=== PATIENT | male | born 1970 | race Caucasian/White ===

== ENCOUNTER 2019-11-15 14:46 | Inpatient (IN) | payer BC, SELFPAY ==
[2019-11-15 14:50] VITALS: BP 122/74; PULSE 110; RESP 16; TEMP 37.9; O2SAT 97
--- NOTE | 2019-11-15 14:56 | ED.SKABFB ---
HPI - Skin/Abscess/Foreign Bdy General Chief complaint: Skin/Abscess/Foreign Body Stated complaint: CELLULITIS Time Seen by Provider: 11/15/19 14:55 Source: patient Mode of arrival: EMS Limitations: no limitations History of Present Illness HPI narrative: The pt is a 49 y/o male who presents to the ED, via EMS, c/o possible RLE cellulitis onset 6.5 hours ago. The pt states that the pain began while he was at work. Pt states that he has erythema to the right thigh and right lower leg, as well as 10/10 pain to the same area that worsens when he moves his leg/puts weight on the RLE, and improves when he is sitting down. Pt states that the pain is sharp when he stands up/puts weight on it, but more of a irritation when he sits down. He also notes that he has had similar episodes of this, though not as severe as right now. He states that the last time he had this was 03/2019, and states that he was not admitted at that time. Pt reports fever and chills, but denies CP, SOB, N/V/D, ABD pain, dysuria, and hematuria. MD complaint: other (Possible cellulitis) Onset (ago): hour(s) (6.5) Location: RLE Severity scale (1-10): 10 Quality: sharp (When he stands up/puts weight on RLE) and other (Irritation (when he is sitting down)) Context: other (PMHx of cellulitis) Associated symptoms: fever, chills and other (Erythema to the right lower leg and right thigh, pain to the right lower leg and right thigh) Related Data Home Medications Medication Instructions Recorded Confirmed No Home Medications 11/15/19 11/15/19 Allergies Allergy/AdvReac Type Severity Reaction Status Date / Time No Known Allergies Allergy Unknown Verified 11/15/19 15:13 Review of Systems Review of Systems: Narrative: Review of Systems Constitutional: Positive for fever and chills. Respiratory: Negative for shortness of breath. Cardiovascular: Negative for chest pain. Gastrointestinal: Negative for nausea, vomiting, abdominal pain and diarrhea. Genitourinary: Negative for dysuria and hematuria. Musculoskeletal: Positive for 10/10 pain to the right lower leg and right thigh that worsens and becomes sharp when he moves his leg/puts weight on it, but improves when he is sitting down and becomes more of an irritation. Skin: Positive for erythema to the right lower leg and right thigh. All systems reviewed & are unremarkable except as noted in HPI and below PMFSH Past Medical History Medical History (Updated 11/15/19 @ 19:15 by Elissa Black MD) Cellulitis Cyst Wrist Leg fracture, right Surgical History Surgical History (Updated 11/15/19 @ 15:05 by Deny Guevara) H/O wrist surgery Cyst removal History of open reduction and internal fixation (ORIF) procedure Right leg Family History Family History (Updated 11/15/19 @ 18:15 by Amy Valladares, MIRA) Other High cholesterol Skin cancer Type 2 diabetes mellitus Social History Social History (Updated 11/15/19 @ 15:09 by Deny Guevara) Smoking packs per day: 1 Smoking cigarettes per day: 20.0 Years smoked: 10 Smoking pack-years: 10.00 Smoking status: Former smoker Tobacco type: cigarettes Alcohol intake: never Substance use: never Gender identity (if verbalized by the patient): Male Spiritual care concerns: No Agree to blood products: Yes Comments PCP: Dr. Edmondson Exam Narrative: Exam Narrative: Constitutional: Appears well-developed. No distress. HENT: Head: Normocephalic. Nose: Nose normal. Mouth/Throat: Oropharynx is clear and moist. Eyes: Conjunctiva are normal. Neck: Normal range of motion. Neck supple. Cardiovascular: Tachycardia and regular rhythm. Pulmonary/Chest: Effort normal and breath sounds normal. Abdominal: Soft. There is no tenderness. Musculoskeletal: Normal range of motion. No edema. Neurological: Alert and oriented to person, place, and time. Skin: Skin is warm. No pallor. Right thigh and right lower leg erythema. Psyc
[2019-11-15] MEDS: KETOROLAC 30 MG/ML VIAL (*BKC) IV PUSH (15:25)
[2019-11-15 15:27] LABS: Hematocrit 50.6 % (42.0-52.0); Hemoglobin 16.4 g/dL (14.0-18.0); Mean Corpuscular HGB Conc 32.4 g/dl (32-36); Mean Corpuscular Hemoglobin 26.2 pg (26-34); Mean Corpuscular Volume 80.7 fl (80-100); Mean Platelet Volume 10.7 fl (7.4-10.4); Platelet Count Result 199 k/mm3 (150-375); Red Blood Count 6.27 M/mm3 (4.6-6.20); Red Cell Distribution Width 15.4 % (11.5-14.5); White Blood Count 12.3 K/mm3 (4.5-10.0)
[2019-11-15 15:38] LABS: Lactic Acid Reflex 1.5 mmol/L (0.7-2.1)
[2019-11-15 15:40] LABS: Blood Urea Nitrogen 17 mg/dL (9-20); Calcium 8.9 mg/dL (8.4-10.2); Carbon Dioxide 26 mmol/L (22-30); Chloride 98 mmol/L (98-107); Estimated CRCL calculation 95 ml/min; Estimated Glomerular Filt Rate > 60; Glucose 111 mg/dL (75-110); Sodium 134 mmol/L (137-145)
[2019-11-15 15:49] LABS: Band Neutrophils Percent 20 % (0-6); Lymphocytes Absolute Manual 0.49 K/mm3 (1.1-4.5); Monocytes Absolute Manual 0.49 K/mm3 (0.1-0.90); Monocytes Percent Manual 4 % (3-9); Neutrophils Absolute Manual 11.31 K/mm3 (1.3-6.7); Neutrophils Percent Manual 72 % (46-73); Total Cells Counted 100
[2019-11-15 15:50] LABS: Anisocytosis 2+ (NORMAL); Platelet Estimate Adequate (Adequate)
[2019-11-15] MEDS: SODIUM CHLORIDE 0.9% IV 1,000 ML 999 ML IV CONT (16:30)
[2019-11-15 17:25] VITALS: BP 131/73; PULSE 100; RESP 16; O2SAT 98
--- NOTE | 2019-11-15 18:07 | ADMGEN ---
This patient, Tay Zhao, was admitted to Medical Room 249-01. Patient/family oriented to hospital policies and general routines including ID bracelet, bed and alarms, visiting hours, pain management, procedures, bathroom and other care routines, personal items, smoking policy, room service/diet, and visiting hours. Valuables list has been completed. Information on how to activate the Rapid Response Team has been discussed. Patient/Family are encouraged to report perceived risks to care and to ask questions if they do not understand what they are told or what they should do.
[2019-11-15 18:15] VITALS: BP 107/59; PULSE 108; RESP 18; TEMP 36.8; O2SAT 95; BMI 37.9
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
[2019-11-15] MEDS: ACETAMINOPHEN 325 MG TABLET 650 MG PO (20:03)
[2019-11-15 21:58] VITALS: BP 104/58; PULSE 101; RESP 18; TEMP 37.3; O2SAT 95
[2019-11-16] VITALS (9 sets, daily range): BP systolic 110–120; BP diastolic 51–66; PULSE 84–103; RESP 16–20; TEMP 36.4–38.3; O2SAT 95–99
[2019-11-16] MEDS: ACETAMINOPHEN 325 MG TABLET 650 MG PO ×4 (05:18→22:17)
[2019-11-16 06:15] LABS: Blood Urea Nitrogen 18 mg/dL (9-20); Calcium 8.1 mg/dL (8.4-10.2); Carbon Dioxide 31 mmol/L (22-30); Chloride 97 mmol/L (98-107); Estimated CRCL calculation 96 ml/min; Estimated Glomerular Filt Rate > 60; Glucose 121 mg/dL (75-110); Potassium 3.8 mmol/L (3.4-5.0); Sodium 133 mmol/L (137-145)
[2019-11-16 06:27] LABS: Basophils Absolute Auto 0.1 K/mm3 (0.0-0.1); Basophils Percent Auto 0.4 % (0.2-1.2); Eosinophils Percent Auto 0.1 % (0-4.4); Hematocrit 47.5 % (42.0-52.0); Hemoglobin 15.3 g/dL (14.0-18.0); Immature Granulocyte Absolute 0.09 K/mm3 (0.00-0.031); Immature Granulocyte Percent A 0.6 % (0-0.5); Lymphocytes Absolute Auto 0.66 K/mm3 (0.9-3.2); Lymphocytes Percent Auto 4.2 % (18.3-44.2); Mean Corpuscular HGB Conc 32.2 g/dl (32-36); Mean Corpuscular Hemoglobin 26.3 pg (26-34); Mean Corpuscular Volume 81.8 fl (80-100); Mean Platelet Volume 10.9 fl (7.4-10.4); Monocytes Absolute Auto 0.8 K/mm3 (0.1-0.6); Monocytes Percent Auto 5.1 % (2.6-8.5); Neutrophils Percent Auto 89.6 % (45.5-73.1); Platelet Count Result 189 k/mm3 (150-375); Red Blood Count 5.81 M/mm3 (4.6-6.20); Red Cell Distribution Width 14.9 % (11.5-14.5); White Blood Count 15.6 K/mm3 (4.5-10.0)
--- NOTE | 2019-11-16 10:27 | PM.IMPN ---
Progress Note: A&P Assessment and Plan (1) Sepsis: Qualifiers: Sepsis acute organ dysfunction status: unspecified Sepsis type: sepsis due to unspecified organism Qualified Code(s): A41.9 - Sepsis, unspecified organism Code(s): A41.9 - Sepsis, unspecified organism Status: Acute Assessment and Plan: -----septic on arrival due to cellulitis of the right leg. Evident by leukocytosis and fever. Fever has improved and the leukocytosis has worsened. Lactic acid is normal. Blood cultures are pending at this time. Patient appears stable. (2) Cellulitis of right leg: Code(s): L03.115 - Cellulitis of right lower limb Status: Acute Assessment and Plan: -----erythema has not improved today but has been less than 24 hours on IV antibiotics. He had a fever last night but has improved today. Continue vancomycin and Ancef at this time. If patient does not improve in the next 12:[address] scan of the area. He does have hardware in this leg and has had cellulitis before about 8 months ago. (3) Obstructive sleep apnea on CPAP: Code(s): G47.33 - Obstructive sleep apnea (adult) (pediatric); Z99.89 - Dependence on other enabling machines and devices Status: Acute Assessment and Plan: -----continue CPAP Time Spent With Patient Time with patient: 25 - 35 minutes Subjective Date/time seen: 11/16/19 10:27 Interval history: Pt is a 49-year-old male here for cellulitis. Patient states that he has the cellulitis is no better or worse today. He has some pain in the area but the pain medication does help. He is eating and drinking okay and not having any nausea or vomiting. He had a fever last night but no chills. He denies chest pain, shortness of breath, abdominal pain, diarrhea and constipation. Review of Systems Review of Systems: All systems reviewed & are unremarkable except as noted in HPI and below Exam Narrative: Exam Narrative: General: Well developed well nourished patient resting comfortably in bed in NAD HEENT: normocephalic Neck: supple Neuro: Alert and oriented x4 CV:RRR Resp:CTA Abd: Soft, non distended. No pain to palpation. Positive bowel sounds Extremities: Extensive cellulitis to the right leg within the demarcated lines drawn by the ER. No abscess palpated or discharge noted. Previous surgical scars noted. Sensation and pulses intact. Objective Data Vital Signs Vital Signs: Vital Signs - 24 hr 11/15/19 14:50 11/15/19 17:25 11/15/19 18:15 Temperature 100.2 F H 98.3 F Pulse Rate 110 H 100 108 H Respiratory Rate 16 16 18 Blood Pressure 122/74 131/73 107/59 L Pulse Oximetry 97 98 95 11/15/19 21:58 11/16/19 05:18 11/16/19 06:00 Temperature 99.2 F 100.9 F H 100.9 F H Pulse Rate 101 H 91 Respiratory Rate 18 18 Blood Pressure 104/58 L 120/55 L Pulse Oximetry 95 99 11/16/19 06:50 11/16/19 07:01 Temperature 99.3 F 99.3 F Pulse Rate Respiratory Rate Blood Pressure Pulse Oximetry Intake/Output Intake/Output: Intake & Output 11/13/19 11/14/19 11/15/19 11/16/19 23:59 23:59 23:59 23:59 Intake Total 1340 1190 Output Total 850 Balance 1340 340 Meds/Results Medications: Active Medications Generic Name Dose Route Start Last Admin Trade Name Freq PRN Reason Stop Dose Admin Acetaminophen 650 mg 11/15/19 16:56 11/16/19 10:08 Tylenol Tablet PO 650 mg Q4H PRN Administration Mild Pain (1-3) or Fever Hydrocodone Bitart/Acetaminophen 1 tab 11/15/19 21:41 11/16/19 05:19 [place] 5-325 Mg PO 1 tab Q6H PRN Administration Pain Rated 4-10 Cefazolin Sodium 1 gm in 50 mls @ 100 mls/hr 11/15/19 22:00 11/16/19 05:49 Ancef 1 Gm/D5w 50 Ml Pm IVPB Infused Q8H [facility] Infusion Vancomycin HCl 1,750 mg in 500 mls @ 250 mls/hr 11/16/19 11:00 11/16/19 10:08 Vancomycin 1,750 Mg/D5w 500 Ml IVPB 200 mls/hr Q12H [facility] Administration Labs Labs:
[2019-11-16 22:45] LABS: Vancomycin Trough 8.9 ug/mL (10.0-20.0)
[2019-11-17 00:51] VITALS: PULSE 88; RESP 16; O2SAT 96
[2019-11-17 05:32] LABS: Hematocrit 48.1 % (42.0-52.0); Hemoglobin 15.5 g/dL (14.0-18.0); Mean Corpuscular HGB Conc 32.2 g/dl (32-36); Mean Corpuscular Volume 80.6 fl (80-100); Mean Platelet Volume 10.3 fl (7.4-10.4); Platelet Count Result 193 k/mm3 (150-375); Red Blood Count 5.97 M/mm3 (4.6-6.20); Red Cell Distribution Width 15.1 % (11.5-14.5); White Blood Count 13.2 K/mm3 (4.5-10.0)
[2019-11-17 05:56] LABS: Alanine Aminotransferase 34 U/L (4-50); Albumin Level 3.8 g/dL (3.5-5.1); Alkaline Phosphatase 65 U/L (38-126); Aspartate Amino Transferase 31 U/L (17-59); Bilirubin,Total 1.2 mg/dL (0.2-1.3); Blood Urea Nitrogen 10 mg/dL (9-20); Calcium 8.2 mg/dL (8.4-10.2); Carbon Dioxide 24 mmol/L (22-30); Chloride 99 mmol/L (98-107); Estimated CRCL calculation 119 ml/min; Estimated Glomerular Filt Rate > 60; Glucose 106 mg/dL (75-110); Potassium 3.9 mmol/L (3.4-5.0); Sodium 131 mmol/L (137-145)
[2019-11-17 06:12] VITALS: BP 122/69; PULSE 92; RESP 18; TEMP 36.8; O2SAT 96
[2019-11-17] MEDS: ACETAMINOPHEN 325 MG TABLET 650 MG PO (06:30)
[2019-11-17 06:32] LABS: Hemoglobin A1C 5.5 % (<5.7)
[2019-11-17] MEDS: polyethylene glycoL 3350 17 GM POWD.PACK PO (09:03)
[2019-11-17 11:17] LABS: Sodium Urine Random 6 meq/L
[2019-11-17 14:00] VITALS: BP 109/61; PULSE 78; RESP 16; TEMP 36.9; O2SAT 97
--- NOTE | 2019-11-17 15:52 | PM.IMPN ---
Progress Note: A&P Assessment and Plan (1) Sepsis: Qualifiers: Sepsis acute organ dysfunction status: unspecified Sepsis type: sepsis due to unspecified organism Qualified Code(s): A41.9 - Sepsis, unspecified organism Code(s): A41.9 - Sepsis, unspecified organism Status: Acute Assessment and Plan: -----septic on arrival due to cellulitis of the right leg. Evident by leukocytosis and fever. Fever has improved and the leukocytosis has worsened. Lactic acid is normal. Blood cultures NGTD. Patient appears stable. (2) Cellulitis of right leg: Code(s): L03.115 - Cellulitis of right lower limb Status: Acute Assessment and Plan: -----erythema improved somewhat today. Pt has not had a fever and his WBC is better. Continue vancomycin and Ancef at this time. Consider CT scan if pt is not improving, although I do believe he has improved a bit today. He does have hardware in this leg and has had cellulitis before about 8 months ago. (3) Obstructive sleep apnea on CPAP: Code(s): G47.33 - Obstructive sleep apnea (adult) (pediatric); Z99.89 - Dependence on other enabling machines and devices Status: Acute Assessment and Plan: -----continue CPAP (4) Hyponatremia: Code(s): E87.1 - Hypo-osmolality and hyponatremia Status: Acute Assessment and Plan: -----noted on labs today 131. Could be due to pain/acute illness. Will monitor with daily labs. Subjective Date/time seen: 11/17/19 15:52 Interval history: Pt is a 49-year-old male here for cellulitis. Patient states that thinks his cellulitis is better on his lower leg but unchanged on his thigh. He has significant pain when walking but other than that he is doing okay. He has no fevers or chills today which is an improvement. He was constipated earlier but was able to have a bowel movement. He denies cp, sob, nausea, vomiting, or abdominal pain. He is eating and drinking well Exam Narrative: Exam Narrative: General: Well developed well nourished patient resting comfortably in bed in NAD HEENT: normocephalic Neck: supple Neuro: Alert and oriented x4 CV:RRR Resp:CTA Abd: Soft, non distended. No pain to palpation. Positive bowel sounds Extremities: Extensive cellulitis to the right leg within the demarcated lines drawn by the ER. No abscess palpated or discharge noted. Erythema below the knee has improved. Erythema to the thigh is unchanged. Previous surgical scars noted. Sensation and pulses intact. Objective Data Vital Signs Vital Signs: Vital Signs - 24 hr 11/16/19 16:18 11/16/19 17:18 11/16/19 20:45 Temperature 100.5 F H 98.2 F Pulse Rate 84 Respiratory Rate 16 Blood Pressure Pulse Oximetry 96 11/16/19 22:11 11/17/19 00:51 11/17/19 06:12 Temperature 97.6 F 98.3 F Pulse Rate 103 H 88 92 Respiratory Rate 20 16 18 Blood Pressure 110/51 L 122/69 Pulse Oximetry 95 96 96 11/17/19 14:00 Temperature 98.4 F Pulse Rate 78 Respiratory Rate 16 Blood Pressure 109/61 Pulse Oximetry 97 Intake/Output Intake/Output: Intake & Output 11/14/19 11/15/19 11/16/19 11/17/19 23:59 23:59 23:59 23:59 Intake Total 1340 3250 1590 Output Total 2800 1500 Balance 1340 450 90 Meds/Results Medications: Active Medications Generic Name Dose Route Start Last Admin Trade Name Freq PRN Reason Stop Dose Admin Acetaminophen 650 mg 11/15/19 16:56 11/17/19 06:30 Tylenol Tablet PO 650 mg Q4H PRN Administration Mild Pain (1-3) or Fever Hydrocodone Bitart/Acetaminophen 1 tab 11/15/19 21:41 11/17/19 09:04 [place] 5-325 Mg PO 1 tab Q6H PRN Administration Pain Rated 4-10 Cefazolin Sodium 1 gm in 50 mls @ 100 mls/hr 11/15/19 22:00 11/17/19 13:59 Ancef 1 Gm/D5w 50 Ml Pm IVPB 100 mls/hr Q8H [facility] Administration Vancomycin HCl 2,000 mg in 500 mls @ 250 mls/hr 11/17/19 10:00 11/17/19 11:34 Vancomycin 2,000 Mg/D5w
[2019-11-17 22:00] VITALS: BP 102/57; PULSE 88; RESP 16; TEMP 36.7; O2SAT 96
[2019-11-18 05:31] LABS: Hemoglobin 14.9 g/dL (14.0-18.0); Mean Corpuscular HGB Conc 33.1 g/dl (32-36); Mean Corpuscular Hemoglobin 26.7 pg (26-34); Mean Corpuscular Volume 80.5 fl (80-100); Mean Platelet Volume 10.2 fl (7.4-10.4); Platelet Count Result 182 k/mm3 (150-375); Red Blood Count 5.59 M/mm3 (4.6-6.20); Red Cell Distribution Width 14.9 % (11.5-14.5); White Blood Count 9.2 K/mm3 (4.5-10.0)
[2019-11-18 05:36] LABS: Blood Urea Nitrogen 10 mg/dL (9-20); Calcium 8.1 mg/dL (8.4-10.2); Carbon Dioxide 27 mmol/L (22-30); Chloride 102 mmol/L (98-107); Estimated CRCL calculation 134 ml/min; Estimated Glomerular Filt Rate > 60; Glucose 93 mg/dL (75-110); Potassium 3.8 mmol/L (3.4-5.0); Sodium 135 mmol/L (137-145)
[2019-11-18 06:00] VITALS: BP 115/64; PULSE 75; RESP 16; TEMP 36.2; O2SAT 76
[2019-11-18 10:56] VITALS: PULSE 89; O2SAT 96
--- NOTE | 2019-11-18 11:10 | PM.IMPN ---
Progress Note: A&P Assessment and Plan (1) Sepsis: Qualifiers: Sepsis acute organ dysfunction status: unspecified Sepsis type: sepsis due to unspecified organism Qualified Code(s): A41.9 - Sepsis, unspecified organism Code(s): A41.9 - Sepsis, unspecified organism Status: Acute Assessment and Plan: -----septic on arrival due to cellulitis of the right leg. Evident by leukocytosis and fever--which have both improved. Lactic acid is normal. Blood cultures NGTD. Patient appears stable. (2) Cellulitis of right leg: Code(s): L03.115 - Cellulitis of right lower limb Status: Acute Assessment and Plan: -----erythema improved today but I do believe he still requires IV abx. Pt has not had a fever and his WBC is normal. Continue vancomycin and Ancef at this time. He does have hardware in this leg and has had cellulitis before about 8 months ago. (3) Obstructive sleep apnea on CPAP: Code(s): G47.33 - Obstructive sleep apnea (adult) (pediatric); Z99.89 - Dependence on other enabling machines and devices Status: Acute Assessment and Plan: -----continue CPAP (4) Hyponatremia: Code(s): E87.1 - Hypo-osmolality and hyponatremia Status: Acute Assessment and Plan: -----Improved today 134. Could be due to pain/acute illness. Will monitor with daily labs. Subjective Date/time seen: 11/18/19 11:10 Interval history: Pt is a 49-year-old male here for cellulitis. Patient states that thinks he is improving. he still has pain to the thigh but that is also improving. He has no fevers or chills today which is an improvement. He denies cp, sob, nausea, vomiting, or abdominal pain. He is eating and drinking well Exam Narrative: Exam Narrative: General: Well developed well nourished patient resting comfortably in bed in NAD HEENT: normocephalic Neck: supple Neuro: Alert and oriented x4 CV:RRR Resp:CTA Abd: Soft, non distended. No pain to palpation. Positive bowel sounds Extremities: Extensive cellulitis to the right leg within the demarcated lines drawn by the ER. No abscess palpated or discharge noted. Erythema in both areas are less intense and no progression outside the demarcated lines. Not much regression at this time. Previous surgical scars noted. Sensation and pulses intact. Objective Data Vital Signs Vital Signs: Vital Signs - 24 hr 11/17/19 14:00 11/17/19 22:00 11/18/19 06:00 Temperature 98.4 F 98.0 F 97.1 F L Pulse Rate 78 88 75 Respiratory Rate 16 16 16 Blood Pressure 109/61 102/57 L 115/64 Pulse Oximetry 97 96 76 L 11/18/19 10:56 Temperature Pulse Rate 89 Respiratory Rate Blood Pressure Pulse Oximetry 96 Intake/Output Intake/Output: Intake & Output 11/15/19 11/16/19 11/17/19 11/18/19 23:59 23:59 23:59 23:59 Intake Total 1340 3250 2730 1790 Output Total 2800 3150 1400 Balance 1340 450 -420 390 Meds/Results Medications: Active Medications Generic Name Dose Route Start Last Admin Trade Name Freq PRN Reason Stop Dose Admin Acetaminophen 650 mg 11/15/19 16:56 11/17/19 06:30 Tylenol Tablet PO 650 mg Q4H PRN Administration Mild Pain (1-3) or Fever Hydrocodone Bitart/Acetaminophen 1 tab 11/15/19 21:41 11/17/19 23:04 [place] 5-325 Mg PO 1 tab Q6H PRN Administration Pain Rated 4-10 Cefazolin Sodium 1 gm in 50 mls @ 100 mls/hr 11/15/19 22:00 11/18/19 07:05 Ancef 1 Gm/D5w 50 Ml Pm IVPB Infused Q8H [facility] Infusion Vancomycin HCl 2,000 mg in 500 mls @ 250 mls/hr 11/17/19 10:00 11/18/19 10:19 Vancomycin 2,000 Mg/D5w 500 Ml IVPB 200 mls/hr Q12H [facility] Infusion Polyethylene Glycol 17 gm 11/17/19 09:00 11/18/19 09:53 [facility]ax [facility] [place] Labs Labs: Laboratory Results - last 24 hr 11/17/19 11/18/19 11/18/19 10:57 04:56 04:56 WBC 9.2 RBC 5.59 Hgb 14.9 Hct 45.0 MCV 80.5 MCH 26.7 MCHC 33.1 R
[2019-11-18 14:00] VITALS: BP 113/71; PULSE 77; RESP 16; TEMP 36.5; O2SAT 96
[2019-11-18] MEDS: ACETAMINOPHEN 325 MG TABLET 650 MG PO (18:14)
[2019-11-18 20:00] VITALS: PULSE 77; RESP 16; O2SAT 96
[2019-11-18 21:24] VITALS: BP 111/67; PULSE 77; RESP 16; TEMP 36.8; O2SAT 96
[2019-11-18 21:47] LABS: Vancomycin Trough 10.6 ug/mL (10.0-20.0)
[2019-11-18 22:02] VITALS: PULSE 76; O2SAT 93
[2019-11-19 05:31] LABS: Hematocrit 46.4 % (42.0-52.0); Mean Corpuscular HGB Conc 32.3 g/dl (32-36); Mean Corpuscular Hemoglobin 26.2 pg (26-34); Mean Corpuscular Volume 81.1 fl (80-100); Mean Platelet Volume 10.3 fl (7.4-10.4); Platelet Count Result 215 k/mm3 (150-375); Red Blood Count 5.72 M/mm3 (4.6-6.20); Red Cell Distribution Width 15.1 % (11.5-14.5); White Blood Count 5.6 K/mm3 (4.5-10.0)
[2019-11-19 06:21] VITALS: BP 114/66; PULSE 74; RESP 16; TEMP 36.4; O2SAT 98
--- NOTE | 2019-11-19 12:14 | PM.IMPN ---
Progress Note: A&P Assessment and Plan (1) Cellulitis of right leg: Code(s): L03.115 - Cellulitis of right lower limb Status: Acute Assessment and Plan: Improving. Continue IV antibiotics with vancomycin and ancef. He does have hardware in this leg and has had cellulitis before about 8 months ago. Hopeful for discharge with oral abx in 1 to 2 days pending clinical improvement. (2) Sepsis: Qualifiers: Sepsis acute organ dysfunction status: unspecified Sepsis type: sepsis due to unspecified organism Qualified Code(s): A41.9 - Sepsis, unspecified organism Code(s): A41.9 - Sepsis, unspecified organism Status: Resolved Assessment and Plan: Evident by leukocytosis and fever on arrival - resolved. Blood cultures pending with no growth to date. (3) Obstructive sleep apnea on CPAP: Code(s): G47.33 - Obstructive sleep apnea (adult) (pediatric); Z99.89 - Dependence on other enabling machines and devices Status: Chronic Assessment and Plan: CPAP (4) Hyponatremia: Code(s): E87.1 - Hypo-osmolality and hyponatremia Status: Acute Assessment and Plan: Improved. Will monitor. Subjective Date/time seen: 11/19/19 1045 Interval history: Mr. Zhao is a 49yo M admitted with right lower extremity cellulitis. He notes his leg redness is improved compared to days prior, less pain with walking. He denies any chest pain or shortness of breath. He has tolerated breakfast without nausea or vomiting. Review of Systems Review of Systems: Narrative: Twelve systems were reviewed with pertinent positives and negatives as per HPI. Exam Narrative: Exam Narrative: General: Male resting supine in bed in no acute distress. HEENT: Normocephalic, EOMI, oral mucosa moist. Cardiovascular: Rate and rhythm are regular. Respiratory: Lungs clear to auscultation all castañeda. Abdomen: Soft, non-tender, non-distended, bowel sounds present. Extremities: Peripheral pulses intact. Cellulitis to right leg in multiple areas - right medial calf along old surgical scars and largest area over right inner thigh, smaller area over right lateral thigh - all within demarcated lines drawn on arrival but still pretty erythematous. Patient notes this is improved compared to days prior. Neuro: No focal neurological deficits. Speech is clear. Objective Data Vital Signs Vital Signs: Last Vital Signs Temp 98.4 F 11/19/19 14:00 Pulse 83 11/19/19 14:00 Resp 16 11/19/19 14:00 BP 135/81 11/19/19 14:00 Pulse Ox 98 11/19/19 14:00 Intake/Output Intake/Output: Intake & Output 11/16/19 11/17/19 11/18/19 11/19/19 23:59 23:59 23:59 23:59 Intake Total 3250 2730 3400 1090 Output Total 2800 3150 2700 800 Balance 450 -420 700 290 Meds/Results Medications: Active Medications Generic Name Dose Route Start Last Admin Trade Name Freq PRN Reason Stop Dose Admin Acetaminophen 650 mg 11/15/19 16:56 11/18/19 18:14 Tylenol Tablet PO 650 mg Q4H PRN Administration Mild Pain (1-3) or Fever Hydrocodone Bitart/Acetaminophen 1 tab 11/15/19 21:41 11/17/19 23:04 [place] 5-325 Mg PO 1 tab Q6H PRN Administration Pain Rated 4-10 Benzocaine 1 applic 11/19/19 12:10 Anbesol Maximum Strength Gel BY MOUTH QID PRN Oral Pain Cefazolin Sodium 1 gm in 50 mls @ 100 mls/hr 11/15/19 22:00 11/19/19 06:35 Ancef 1 Gm/D5w 50 Ml Pm IVPB Infused Q8H [facility] Infusion Vancomycin HCl 2,000 mg in 500 mls @ 250 mls/hr 11/17/19 10:00 11/19/19 09:04 Vancomycin 2,000 Mg/D5w 500 Ml IVPB 150 mls/hr Q12H [facility] Administration Polyethylene Glycol 17 gm 11/17/19 09:00 11/19/19 09:08 Miralax PO Not Given [facility] Labs Labs: Laboratory Tests 11/19/19 05:01 11/18/19 04:56 Quality VTE Prophylaxis VTE prop
[2019-11-19 14:00] VITALS: BP 135/81; PULSE 83; RESP 16; TEMP 36.9; O2SAT 98
[2019-11-19] MEDS: BENZOCAINE 20% DENTAL GEL 9 GM TUBE 1 APPLIC BY MOUTH (17:59)
[2019-11-19 19:51] VITALS: PULSE 74; O2SAT 96
[2019-11-19 20:00] VITALS: PULSE 74; RESP 16; O2SAT 96
[2019-11-19 22:00] VITALS: BP 119/73; PULSE 69; RESP 20; TEMP 36.4; O2SAT 96
[2019-11-20 05:45] LABS: Blood Urea Nitrogen 11 mg/dL (9-20); Calcium 8.2 mg/dL (8.4-10.2); Carbon Dioxide 29 mmol/L (22-30); Chloride 102 mmol/L (98-107); Estimated CRCL calculation 134 ml/min; Estimated Glomerular Filt Rate > 60; Glucose 94 mg/dL (75-110); Potassium 3.9 mmol/L (3.4-5.0); Sodium 137 mmol/L (137-145)
[2019-11-20 05:57] VITALS: BP 117/73; PULSE 67; RESP 20; TEMP 36.3; O2SAT 97
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
== END 2019-11-20 11:27 | disposition home or self-care (01) | DRG 872 ==
LOC: ANHED 17:00 → ANH2MED 17:16
PROVIDERS: Physician Assistant; Admitting Provider Internal Medicine; Emergency Provider Emergency Medicine; PCP Internal Medicine; Visit Provider Physician Assistant
DX: A41.9 Sepsis, unspecified organism (principal); L03.115 Cellulitis of right lower limb; E87.1 Hypo-osmolality and hyponatremia; G47.33 Obstructive sleep apnea (adult) (pediatric)
CPT/HCPCS: 36415; 80048; 80076; 80202; 83036; 83605; 84300; 85025; 85027; 87040; 87081; 96365; 96375; 99285; A9270; J0690; J1885; J2543; J3370; J7030

== ENCOUNTER 2020-05-06 21:34 | Inpatient (IN) | payer BC, SELFPAY ==
[2020-05-06 21:48] VITALS: BP 101/65; PULSE 92; RESP 16; TEMP 38.2; O2SAT 100
[2020-05-06 23:34] VITALS: BP 138/80; PULSE 101; RESP 16; TEMP 39.3; O2SAT 99
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
[2020-05-07] VITALS (7 sets, daily range): BP systolic 106–132; BP diastolic 48–84; PULSE 91–111; RESP 15–20; TEMP 36.6–38.7; O2SAT 95–97; BMI 41.5
[2020-05-07 00:28] LABS: Basophils Absolute Auto 0.1 K/mm3 (0.0-0.1); Basophils Percent Auto 0.4 % (0.2-1.2); Eosinophils Percent Auto 0.2 % (0-4.4); Hematocrit 50.5 % (42.0-52.0); Hemoglobin 16.9 g/dL (14.0-18.0); Immature Granulocyte Absolute 0.04 K/mm3 (0.00-0.031); Immature Granulocyte Percent A 0.3 % (0-0.5); Lymphocytes Absolute Auto 0.54 K/mm3 (0.9-3.2); Lymphocytes Percent Auto 3.5 % (18.3-44.2); Mean Corpuscular HGB Conc 33.5 g/dl (32-36); Mean Corpuscular Hemoglobin 26.8 pg (26-34); Monocytes Absolute Auto 0.5 K/mm3 (0.1-0.6); Monocytes Percent Auto 3.5 % (2.6-8.5); Neutrophils Absolute Auto 14.2 K/mm3 (1.3-6.7); Neutrophils Percent Auto 92.1 % (45.5-73.1); Platelet Count Result 219 k/mm3 (150-375); Red Blood Count 6.31 M/mm3 (4.6-6.20); Red Cell Distribution Width 16.1 % (11.5-14.5); White Blood Count 15.4 K/mm3 (4.5-10.0)
[2020-05-07 00:44] LABS: INR 1.1; Lactic Acid Reflex 1.9 mmol/L (0.7-2.1); Prothrombin Time 13.7 Seconds (11.1-14.7)
[2020-05-07 00:45] LABS: Partial Thromboplastin Time 25.9 SECONDS (22.3-36.8)
[2020-05-07 00:49] LABS: Alanine Aminotransferase 60 U/L (4-50); Albumin Level 4.5 g/dL (3.5-5.1); Alkaline Phosphatase 65 U/L (38-126); Anion Gap 8 mmol/L (8-16); Aspartate Amino Transferase 56 U/L (17-59); Blood Urea Nitrogen 21 mg/dL (9-20); Calcium 9.1 mg/dL (8.4-10.2); Carbon Dioxide 27 mmol/L (22-30); Chloride 102 mmol/L (98-107); Estimated CRCL calculation 109 ml/min; Estimated Glomerular Filt Rate > 60; Glucose 120 mg/dL (75-110); Potassium 4.5 mmol/L (3.4-5.0); Sodium 137 mmol/L (137-145)
[2020-05-07] MEDS: ACETAMINOPHEN 500 MG TABLET 1000 MG PO (00:55)
[2020-05-07] MEDS: MORPHINE SULFATE 2 MG/ML INJ IV PUSH (00:55)
--- NOTE | 2020-05-07 02:57 | PC.NURSE ---
This patient, Tay Zhao, was admitted to 3 [facility] Surg Room 317-01. Patient/family oriented to hospital policies and general routines including ID bracelet, bed and alarms, visiting hours, pain management, procedures, bathroom and other care routines, personal items, smoking policy, room service/diet, and visiting hours. Valuables list has been completed. Information on how to activate the Rapid Response Team has been discussed. Patient/Family are encouraged to report perceived risks to care and to ask questions if they do not understand what they are told or what they should do.
[2020-05-07] MEDS: MORPHINE SULFATE 4 MG/ML INJ IV PUSH (05:51)
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
[2020-05-07] MEDS: SODIUM CHLORIDE 0.9% IV 1,000 ML 125 ML IV CONT ×2 (11:27→23:44)
[2020-05-07] MEDS: ENOXAPARIN 40 MG/0.4 ML SYRINGE SUB-Q (11:28)
[2020-05-07] MEDS: ACETAMINOPHEN 325 MG TABLET 650 MG PO ×3 (11:32→20:23)
[2020-05-08] MEDS: traMADol HCL 50 MG TABLET PO (04:39)
[2020-05-08 05:38] LABS: Basophils Percent Auto 0.3 % (0.2-1.2); Eosinophils Percent Auto 0.3 % (0-4.4); Hematocrit 45.1 % (42.0-52.0); Hemoglobin 14.7 g/dL (14.0-18.0); Immature Granulocyte Absolute 0.05 K/mm3 (0.00-0.031); Immature Granulocyte Percent A 0.4 % (0-0.5); Lymphocytes Absolute Auto 0.81 K/mm3 (0.9-3.2); Lymphocytes Percent Auto 6.2 % (18.3-44.2); Mean Corpuscular HGB Conc 32.6 g/dl (32-36); Mean Corpuscular Hemoglobin 26.2 pg (26-34); Mean Corpuscular Volume 80.4 fl (80-100); Mean Platelet Volume 10.6 fl (7.4-10.4); Monocytes Absolute Auto 0.8 K/mm3 (0.1-0.6); Monocytes Percent Auto 6.4 % (2.6-8.5); Neutrophils Absolute Auto 11.4 K/mm3 (1.3-6.7); Neutrophils Percent Auto 86.4 % (45.5-73.1); Platelet Count Result 164 k/mm3 (150-375); Red Blood Count 5.61 M/mm3 (4.6-6.20); Red Cell Distribution Width 15.6 % (11.5-14.5); White Blood Count 13.2 K/mm3 (4.5-10.0)
[2020-05-08 06:00] VITALS: BP 118/72; PULSE 93; RESP 16; TEMP 36.7; O2SAT 96
[2020-05-08 06:13] LABS: Anion Gap 7 mmol/L (8-16); Blood Urea Nitrogen 11 mg/dL (9-20); Calcium 8.1 mg/dL (8.4-10.2); Carbon Dioxide 23 mmol/L (22-30); Chloride 105 mmol/L (98-107); Estimated CRCL calculation 141 ml/min; Estimated Glomerular Filt Rate > 60; Glucose 107 mg/dL (75-110); Sodium 135 mmol/L (137-145)
[2020-05-08] MEDS: ACETAMINOPHEN 325 MG TABLET 650 MG PO ×2 (06:39→15:17)
[2020-05-08] MEDS: ENOXAPARIN 40 MG/0.4 ML SYRINGE SUB-Q (10:15)
[2020-05-08 14:00] VITALS: BP 118/75; PULSE 85; RESP 16; TEMP 36.5; O2SAT 98
--- NOTE | 2020-05-08 16:56 | PM.IMPN ---
Progress Note: A&P Assessment and Plan (1) Cellulitis of right leg: Code(s): L03.115 - Cellulitis of right lower limb Status: Acute Assessment and Plan: recurrent right leg. With his hardware from previous surgery will cover with vancomycin along with the Ancef. Blood cultures so far negative. May benefit from prophylactic antibiotic in future. A1c only 5.5 (2) Sepsis: Qualifiers: Sepsis acute organ dysfunction status: unspecified Sepsis type: sepsis due to unspecified organism Qualified Code(s): A41.9 - Sepsis, unspecified organism Code(s): A41.9 - Sepsis, unspecified organism Status: Resolved Assessment and Plan: as evidence by tachycardia, fever and leukocytosis. blood cultures NG so far and treating underlying cellulitis the precipitating cause (3) Obstructive sleep apnea on CPAP: Code(s): G47.33 - Obstructive sleep apnea (adult) (pediatric); Z99.89 - Dependence on other enabling machines and devices Status: Chronic Assessment and Plan: can use continue CPAP (4) DVT prophylaxis: Code(s): Z29.9 - Encounter for prophylactic measures, unspecified Status: Acute Assessment and Plan: Lovenox Subjective Date/time seen: 05/08/20 16:56 Interval history: date of visit 05/08. healthy 49-year-old white male with recurrent cellulitis right leg admitted with fever chills erythema right leg with leukocytosis. Cultured placed on antibiotics and continues to improve. Redness subsiding and no more fever. No nausea. Exam Narrative: Exam Narrative: blood pressure 118/74 pulse is 84 saturating 98% on room air and afebrle last 24 hours HEENT , neck is supple , pupil equal reactive to light sclera anicteric lungs clear CV no murmurs or gallops heard abdomen is soft nontender bowel sounds normal active no masses extremities without edema right leg is erythematous from dorsum been of foot all the way up to the upper thigh. Right groin is tender to palpation although I do not feeling definite adenopathy. dorsalis pedis 2+ and symmetrical with posterior tibial slightly decreased on the right compared to left, no open areas or skin breakdown integument erythema from the cellulitis but as stated no open areas and less so than 9/10 neuro alert pleasant cooperative no focal deficits cranial nerves 2-12 are intact Objective Data Vital Signs Vital Signs: Vital Signs - 24 hr 05/07/20 22:00 05/08/20 06:00 05/08/20 14:00 Temperature 36.6 C 36.7 C 36.5 C Pulse Rate 91 93 85 Respiratory Rate 16 16 16 Blood Pressure 108/71 118/72 118/75 Pulse Oximetry 96 96 98 Intake/Output Intake/Output: Intake & Output 05/05/20 05/06/20 05/07/20 05/08/20 23:59 23:59 23:59 23:59 Intake Total 3050 2032 Output Total 1775 1850 Balance 1275 182 Meds/Results Medications: Active Medications Generic Name Dose Route Start Last Admin Trade Name Freq PRN Reason Stop Dose Admin Acetaminophen 650 mg 05/07/20 05:41 05/08/20 15:17 Tylenol Tablet PO 650 mg Q4H PRN Administration Mild Pain (1-3) or Fever Enoxaparin Sodium 40 mg 05/07/20 10:05 05/08/20 10:15 Lovenox SUB-Q 40 mg DAILY MERCEDES Administration Cefazolin Sodium 1 gm in 50 mls @ 100 mls/hr 05/07/20 08:00 05/08/20 10:15 Ancef 1 Gm/D5w 50 Ml Pm IVPB 100 mls/hr Q8H MERCEDES Administration Vancomycin HCl 1,750 mg in 500 mls @ 250 mls/hr 05/07/20 11:00 05/08/20 10:15 Vancomycin 1,750 Mg/D5w 500 Ml IVPB 250 mls/hr Q12H MERCEDES Administration Morphine Sulfate 4 mg 05/07/20 16:15 Morphine Sulfate Inj IV PUSH Q4H PRN Pain Rated 7-10 Tramadol HCl 50 mg 05/07/20 16:14 05/08/20 04:39 Ultram PO 50 mg Q6H PRN Administration Pain Rated 4-6 Labs Labs: Laboratory Results - last 24 hr 05/08/20 05/08/20 05:21 05:21 WBC 13.2 H RBC 5.61 Hgb 14.7 Hct 45.1 MCV 80.4 MCH 26.2 MCHC 32.6 RDW 15.6 H
[2020-05-08 21:55] VITALS: BP 121/78; PULSE 84; RESP 20; TEMP 37.4; O2SAT 98
[2020-05-08 23:06] LABS: Vancomycin Trough 6.9 ug/mL (10.0-20.0)
[2020-05-09 05:57] VITALS: BP 100/57; PULSE 74; RESP 20; TEMP 37.1; O2SAT 96
[2020-05-09 08:00] LABS: Basophils Percent Auto 0.5 % (0.2-1.2); Eosinophils Absolute Auto 0.1 K/mm3 (0-0.3); Eosinophils Percent Auto 1.6 % (0-4.4); Hematocrit 45.8 % (42.0-52.0); Hemoglobin 15.3 g/dL (14.0-18.0); Immature Granulocyte Absolute 0.03 K/mm3 (0.00-0.031); Immature Granulocyte Percent A 0.3 % (0-0.5); Lymphocytes Percent Auto 13.6 % (18.3-44.2); Mean Corpuscular HGB Conc 33.4 g/dl (32-36); Mean Corpuscular Hemoglobin 26.5 pg (26-34); Mean Corpuscular Volume 79.2 fl (80-100); Mean Platelet Volume 10.3 fl (7.4-10.4); Monocytes Absolute Auto 0.7 K/mm3 (0.1-0.6); Monocytes Percent Auto 8.2 % (2.6-8.5); Neutrophils Absolute Auto 6.7 K/mm3 (1.3-6.7); Neutrophils Percent Auto 75.8 % (45.5-73.1); Platelet Count Result 199 k/mm3 (150-375); Red Blood Count 5.78 M/mm3 (4.6-6.20); Red Cell Distribution Width 15.9 % (11.5-14.5); White Blood Count 8.9 K/mm3 (4.5-10.0)
[2020-05-09] MEDS: ENOXAPARIN 40 MG/0.4 ML SYRINGE SUB-Q (08:27)
--- NOTE | 2020-05-09 14:47 | PM.IMPN ---
Progress Note: A&P Assessment and Plan (1) Cellulitis of right leg: Code(s): L03.115 - Cellulitis of right lower limb Status: Acute Assessment and Plan: recurrent right leg. With his hardware from previous surgery covering with vancomycin along with the Ancef. Blood cultures so far negative. May benefit from prophylactic antibiotic in future. A1c only 5.5 (2) Sepsis: Qualifiers: Sepsis acute organ dysfunction status: unspecified Sepsis type: sepsis due to unspecified organism Qualified Code(s): A41.9 - Sepsis, unspecified organism Code(s): A41.9 - Sepsis, unspecified organism Status: Resolved Assessment and Plan: as evidence by tachycardia, fever and leukocytosis. blood cultures NG so far and treating underlying cellulitis the precipitating cause wbc normal today 8.9 (3) Obstructive sleep apnea on CPAP: Code(s): G47.33 - Obstructive sleep apnea (adult) (pediatric); Z99.89 - Dependence on other enabling machines and devices Status: Chronic Assessment and Plan: can use continue CPAP (4) DVT prophylaxis: Code(s): Z29.9 - Encounter for prophylactic measures, unspecified Status: Acute Assessment and Plan: Lovenox Subjective Date/time seen: 05/09/20 14:47 Interval history: date of visit 05/09. healthy 49-year-old white male with recurrent cellulitis right leg admitted with fever chills erythema right leg with leukocytosis. Cultured placed on antibiotics and continues to improve. Redness subsiding and no more fever. No nausea. Exam Narrative: Exam Narrative: blood pressure 100/60 pulse is 74 saturating 96% on room air and afebrle last 48 hours HEENT , neck is supple , pupil equal reactive to light sclera anicteric lungs clear CV no murmurs or gallops heard abdomen benign extremities without edema right leg is erythematous from dorsum been of foot all the way up to the upper thigh. . dorsalis pedis 2+ and symmetrical with posterior tibial slightly decreased on the right compared to left, no open areas or skin breakdown integument erythema from the cellulitis but as stated no open areas and erythema continues to subside neuro alert pleasant cooperative no focal deficits Objective Data Vital Signs Vital Signs: Vital Signs - 24 hr 05/08/20 21:55 05/09/20 05:57 Temperature 37.4 C 37.1 C Pulse Rate 84 74 Respiratory Rate 20 20 Blood Pressure 121/78 100/57 L Pulse Oximetry 98 96 Intake/Output Intake/Output: Intake & Output 05/06/20 05/07/20 05/08/20 05/09/20 23:59 23:59 23:59 23:59 Intake Total 3050 3842 1340 Output Total 1775 2850 450 Balance 1275 992 890 Meds/Results Medications: Active Medications Generic Name Dose Route Start Last Admin Trade Name Andrade PRN Reason Stop Dose Admin Acetaminophen 650 mg 05/07/20 05:41 05/08/20 15:17 Tylenol Tablet PO 650 mg Q4H PRN Administration Mild Pain (1-3) or Fever Enoxaparin Sodium 40 mg 05/07/20 10:05 05/09/20 08:27 Lovenox SUB-Q 40 mg DAILY MERCEDES Administration Cefazolin Sodium 1 gm in 50 mls @ 100 mls/hr 05/07/20 08:00 05/09/20 08:56 Ancef 1 Gm/D5w 50 Ml Pm IVPB Infused Q8H MERCEDES Infusion Vancomycin HCl 2,000 mg in 500 mls @ 250 mls/hr 05/09/20 12:00 05/09/20 13:08 Vancomycin 2,000 Mg/D5w 500 Ml IVPB 250 mls/hr Q12H MERCEDES Administration Morphine Sulfate 4 mg 05/07/20 16:15 Morphine Sulfate Inj IV PUSH Q4H PRN Pain Rated 7-10 Tramadol HCl 50 mg 05/07/20 16:14 05/08/20 04:39 Ultram PO 50 mg Q6H PRN Administration Pain Rated 4-6 Labs Labs: Laboratory Results - last 24 hr 05/08/20 05/09/20 22:25 07:53 WBC 8.9 RBC 5.78 Hgb 15.3 Hct 45.8 MCV 79.2 L MCH 26.5 MCHC 33.4 RDW 15.9 H Plt Count 199 MPV 10.3 Immature Gran % (Auto) 0.3 Neut % (Auto) 75.8 H Lymph % (Auto) 13.6 L [place] % (Auto) 8.2 Eos % (Auto) 1.6 Baso % (Auto)
[2020-05-09 15:16] VITALS: BP 120/71; PULSE 78; RESP 16; O2SAT 98
[2020-05-09 22:00] VITALS: BP 137/78; PULSE 76; RESP 20; TEMP 36.6; O2SAT 99
[2020-05-10 06:00] VITALS: BP 106/61; PULSE 66; RESP 18; TEMP 36; O2SAT 99
[2020-05-10] MEDS: ENOXAPARIN 40 MG/0.4 ML SYRINGE SUB-Q (08:10)
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
== END 2020-05-10 12:30 | disposition home or self-care (01) | DRG 872 ==
LOC: ANHED 23:47 → ANH3MEDSUR 05-07 04:07
PROVIDERS: Emergency Medicine; Admitting Provider Internal Medicine; Emergency Provider Emergency Medicine; PCP Internal Medicine; Visit Provider Internal Medicine
DX: A41.9 Sepsis, unspecified organism (principal); L03.115 Cellulitis of right lower limb; G47.33 Obstructive sleep apnea (adult) (pediatric); Z87.891 Personal history of nicotine dependence; Z98.890 Other specified postprocedural states
CPT/HCPCS: 36415; 80048; 80053; 80202; 83605; 85025; 85610; 85730; 87040; 94660; 96365; 96375; 99285; A9270; J0690; J1650; J2270; J3370; J7030

== ENCOUNTER 2021-11-23 10:24 | Outpatient (CLI) | payer BC, SELFPAY ==
--- NOTE | 2021-11-26 12:33 | WPDHOLTEREM ---
Holter/Event Monitor Holter/Event Monitor Date of procedure: 11/26/21 Holter/Event Procedure: 48 Hr Holter Monitor Diagnosis: Tachycardia Indications: Tachycardia Image/Tracing Quality: Acceptable Finding: Underlying rhythm is sinus with an average heart rate of 78 beats per minute minimum 47 beats per minute occurring at 8:33 a.m. and a maximum of 121 beats per minute occurring at 4:39 p.m.. There is no ventricular ectopy noted throughout the study. Rare supraventricular ectopy totaling 121 beats primarily consisting of isolated premature atrial contractions, two 3 beat atrial runs. No atrial fibrillation, atrial flutter, prolonged pauses or high-grade AV block. Longest RR interval was 1.4 seconds occurring at 4:34 a.m.. Two patient's symptom diary entries returned in conjunction with the study. At 4:00 p.m. patient complained of shortness of breath while walking so she was sinus rhythm without ectopy heart rate 90 beats per minute S. at 6:00 p.m. patient plan of shortness of breath and fast heart rate associated with sinus rhythm heart rate 94 beats per minute without ectopy. Conclusion: Underlying sinus rhythm with no ventricular ectopy and rare supraventricular ectopy primarily the form of premature atrial contractions and two 3 beat runs of atrial tachycardia. No atrial fibrillation or atrial flutter.
== END 2021-11-23 10:25 | disposition home or self-care (01) ==
PROVIDERS: PCP Internal Medicine; Visit Provider Internal Medicine
DX: I47.1 Supraventricular tachycardia (principal)
CPT/HCPCS: 93005; 93225; 93226